=== PATIENT | female | born 1930 | race Caucasian/White ===

== ENCOUNTER → 2016-02-19 | Outpatient (CLI) | payer BC ==
[~2016-02-19] MED LIST: ACET650T49 PO; ADVIN25/60 INH; AMLO-114 PO; ASPCH81X PO; CALC500C70 PO; CHOL20005 PO; CYAN100020 PO; DONE10TA12 PO; ESCI10TA17 PO; GLC500 PO; GLUCTAB7 PO; LISI40TA PO; NMN10 PO; OMEG10007 PO; PRLSR20 PO; PRVC/40 PO
--- NOTE | 2016-02-19 15:48 | MAMMOGRAPHY REPORT ---
BILATERAL DIGITAL SCREENING MAMMOGRAM WITH CAD: 02/19/2016 CLINICAL HISTORY: Routine screening. Patient has no complaints. TECHNIQUE: Bilateral CC and MLO views were obtained. Current study was also evaluated with a Compu ter Aided Detection (CAD) system. COMPARISON: Comparison is made to exams dated: 02/15/2015 mammogram, 02/14/2014 mammogram, 02/12/20 13 mammogram, 02/10/2012 mammogram, 02/06/2011 mammogram, and 02/05/2010 mammogram - [facility]. BREAST COMPOSITION: There are scattered areas of fibroglandular density in both breasts. FINDINGS: There is a newly visualized 6 mm mass in the lower outer quadrant of the left breast, for which additional spot compression tomosynthesis views and targeted ultrasound is recommended. There are mild vascular calcifications and stable benign-appearing microcalcifications bilaterally. No other suspicious mass, architectural distortion or cluster of microcalcifications is seen. IMPRESSION: ACR BI-RADS CATEGORY 0: INCOMPLETE EVALUATION: NEED ADDITIONAL IMAGING EVALUATION The newly visualized 6 cm mass in the left breast needs additional evaluation. The patient will be called to schedule an appointment. Approximately 10% of breast cancers are not detected with mammography. A negative mammographic repor t should not delay biopsy if a clinically suggestive mass is present. Elvia Schulte M.D. ay/:02/19/2016 12:49:10 Hairspring Adjuster: Cookie MENDOZA(Ama)(Broderick)(BD), [facility] letter sent: Addl Imaging 0 BI-RADS Code: ACR BI-RADS Category 0: Incomplete Evaluation: Need Additional Imaging Evaluation
== END | disposition home or self-care (01) ==
LOC: C.MAMM 11:17
PROVIDERS: ATTEND Internal Medicine
DX: Z12.31 Encounter for screening mammogram for malignant neoplasm of breast (principal); N63 Unspecified lump in breast

== ENCOUNTER → 2016-02-23 | Outpatient (CLI) | payer BC ==
--- NOTE | 2016-02-23 15:17 | DIAGNOSTIC IMAGING REPORT ---
TWO VIEW CHEST CLINICAL HISTORY: Acute bronchitis. FINDINGS: PA and lateral chest radiographs are compared to study dated 08/24/2013. The heart is mildly enlarged and there is atherosclerotic calcification of the thoracic aorta. The pulmonary vasculature is noncongested. Chronic interstitial thickening is unchanged. No airspace consolidation or pleural effusion is seen. Mild bibasilar atelectasis is noted. Biapical scarring is observed. There is no pneumothorax. The skeletal structures are osteopenic. The bony thorax appears intact. IMPRESSION: Mild cardiac enlargement with no active disease in the chest. Electronically signed by: Sharath Sullivan M.D. 02/23/2016 3:15 PM Dictated Date/Time: 02/23/2016 3:14 PM
== END | disposition home or self-care (01) ==
LOC: C.RADBC 15:00
PROVIDERS: ATTEND Internal Medicine Geriatric Medicine
DX: J45.909 Unspecified asthma, uncomplicated (principal); J20.9 Acute bronchitis, unspecified

== ENCOUNTER → 2016-02-27 | Outpatient (CLI) | payer BC ==
--- NOTE | 2016-02-27 16:37 | MAMMOGRAPHY REPORT ---
UNILATERAL LEFT DIGITAL DIAGNOSTIC MAMMOGRAM TOMOSYNTHESIS AND TARGETED LEFT ULTRASOUND: 02/27/2016 CLINICAL HISTORY: 85 year-old woman called back from screening mammography for a newly visualized ma ss in the inferior left breast. TECHNIQUE: Spot compression left CC and MLO tomosynthesis images were obtained. COMPARISON: Comparison is made to exams dated: 02/19/2016 mammogram, 02/14/2014 mammogram, 02/15/2015 mammogram, 02/11/2013 mammogram, 02/10/2012 mammogram, and 02/06/2011 mammogram - [facility]. BREAST COMPOSITION: There are scattered areas of fibroglandular density in the left breast. FINDINGS: Best seen on the spot compression left MLO view, there is persistence of an ovoid 7.0 x 2. 8 mm mass in the anterior left breast. This is not clearly identified on the spot compression CC vi ew. Further evaluation with ultrasound was performed. There are mild vascular calcifications withi n the left breast. Real-time high-resolution sonographic evaluation was performed in the inferior left breast. In the 6:00 axis, 2 cm from the nipple, there is a microlobulated mixed echogenicity predominantly isoechoi c mass with internal anechoic spaces, measuring approximately 3.8 x 2.1 x 5.0 mm. This is thought t o correlate with the mammographic mass and is indeterminate. Differential considerations include fo agustín fibrocystic change and a papillary lesion. Definitive characterization with ultrasound guided c ore needle biopsy is recommended. IMPRESSION: ACR BI-RADS CATEGORY 4B: INTERMEDIATE SUSPICION FOR MALIGNANCY, TARGETED ULTRASOUND ACR BI-RADS CATEGORY 4B: INTERMEDIATE SUSPICION FOR MALIGNANCY Left breast ultrasound guided core biopsy is recommended for a mixed echogenicity microlobulated fadumo id appearing 5 mm mass in the 6:00 axis, felt to correlate with a newly visualized mammographic mass in the inferior left breast. These results and recommendations were discussed with the patient and her daughter at the time of th e exam. She tentatively scheduled the left breast biopsy prior to leaving our department. Approximately 10% of breast cancers are not detected with mammography. A negative mammographic repor t should not delay biopsy if a clinically suggestive mass is present. Elvia Schulte M.D. ay/:02/27/2016 14:22:35 Aircraft Power Plant Assembler: Gracie MENDOZA(Ama)(M), [facility] letter sent: Abnormal 05/22 BI-RADS Code: ACR BI-RADS Category 4B: Intermediate Suspicion For Malignancy Ultrasound BI-RADS: AC R BI-RADS Category 4B: Intermediate Suspicion For Malignancy
== END | disposition home or self-care (01) ==
LOC: C.MAMM 13:53
PROVIDERS: ATTEND Internal Medicine
DX: R92.8 Other abnormal and inconclusive findings on diagnostic imaging of breast (principal); N63 Unspecified lump in breast

== ENCOUNTER → 2016-03-07 | Outpatient (CLI) | payer BC ==
--- NOTE | 2016-03-07 14:17 | MAMMOGRAPHY REPORT ---
UNILATERAL LEFT DIGITAL DIAGNOSTIC MAMMOGRAM TOMOSYNTHESIS AND TARGETED LEFT ULTRASOUND: 03/07/2016 CLINICAL HISTORY: Left 6:00 breast mass, for which biopsy was recommended. TECHNIQUE: Breast tomosynthesis in addition to standard 2D mammography was performed. Left CC and MLO 2-D and tomosynthesis images were obtained. COMPARISON: Comparison is made to exams dated: 02/27/2016 ultrasound, 02/27/2016 mammogram, 02/19/2016 mammogram, 02/15/2015 mammogram, 02/14/2014 mammogram, and 02/11/2013 mammogram - [facility]. BREAST COMPOSITION: There are scattered areas of fibroglandular density in the left breast. FINDINGS: The patient presented for ultrasound guided biopsy of the left 6:00 breast mass. Preprocedural ultr asound was performed of the left breast at 6:00, 2 cm from the nipple, at the site of the previously seen mass. However, the previously seen mass was no longer evident. Therefore, repeat mammograms were obtained of the left breast, to see if the mammographic mass was present. The previously seen oval mass within the left inferior breast on the MLO view is not evident on the current exam. Given that the mass is no longer visualized mammographically and sonographically, it likely represented a cyst which has resolved in the interval. Recommend follow-up diagnostic mammograms and possible ul trasound of the left breast in 6 months to reevaluate the area, given that biopsy was not performed. The remainder of the left breast is stable mammographically compared to prior exams, without suspici ous masses, calcifications, or areas of architectural distortion noted. IMPRESSION: ACR-BI-RADS CATEGORY 3: PROBABLY BENIGN, TARGETED ULTRASOUND ACR-BI-RADS CATEGORY 3: [place] OBABLY BENIGN The previously seen left 6:00 breast mass is no longer evident sonographically and mammographically, therefore biopsy was not performed. This likely represented a cyst which has resolved. Recommend follow-up diagnostic mammograms and possible ultrasound of the left breast in 6 months to reevaluate . The patient and her daughter have been verbally notified of the results. Approximately 10% of breast cancers are not detected with mammography. A negative mammographic repor t should not delay biopsy if a clinically suggestive mass is present. Lina Tejeda M.D. ah/:03/07/2016 13:42:58 Laser/Electro Optics Technician: Caridad MENDOZA(R)(M), [facility] letter sent: Follow Up Recommended 3 BI-RADS Code: ACR-BI-RADS Category 3: Probably Benign Ultrasound BI-RADS: ACR-BI-RADS Category 3: P robably Benign
== END | disposition home or self-care (01) ==
LOC: C.MAMM 11:12
PROVIDERS: ATTEND Internal Medicine
DX: R92.8 Other abnormal and inconclusive findings on diagnostic imaging of breast (principal)

== ENCOUNTER → 2016-05-02 | Outpatient (CLI) | payer BC ==
[2016-05-02 13:35] LABS: BASO % 1.8 %; EOS % 3.5 %; HEMATOCRIT 40.7 % (37-47); IG% 0.3 %; LYMPH % 18.8 %; LYMPH ABS # 2.13 K/uL (1.2-3.4); MEAN CELL VOLUME 69.3 fL (80-100); MEAN CORPUSCULAR HEMOGLOBIN 20.8 pg (25-34); MEAN PLATELET VOLUME 10.5 fL (7.4-10.4); MONO % 7.4 %; NEUT % 68.2 %; PLATELET COUNT 567 K/uL (130-400); RED BLOOD COUNT 5.87 M/uL (4.2-5.4)
[2016-05-02 13:58] LABS: ESTIMATED AVERAGE GLUCOSE 123 mg/dl; HA1C FLAG Normal (Normal)
[2016-05-02 14:03] LABS: ALT/SGPT 21 U/L (12-78); AST/SGOT 16 U/L (15-37); BLOOD UREA NITROGEN 18 mg/dl (7-18); BUN/CREATININE RATIO 19.9 (10-20); CALCIUM 9.6 mg/dl (8.5-10.1); CARBON DIOXIDE 29 mmol/L (21-32); CHLORIDE 106 mmol/L (98-107); CREATININE 0.92 mg/dl (0.60-1.20); GLUCOSE 76 mg/dl (70-99); POTASSIUM 4.6 mmol/L (3.5-5.1); SODIUM 142 mmol/L (136-145)
[2016-05-02 14:05] LABS: ALB/GLOB RATIO 1.1 (0.9-2); ALKALINE PHOSPHATASE 49 U/L (45-117); CHOLESTEROL 163 mg/dl (0-200); CHOLESTEROL/HDL RATIO 2.6; HDL CHOLESTEROL 63 mg/dl; LDL CHOLESTEROL CALCULATED 74 mg/dl; TRIGLYCERIDES 128 mg/dl (0-150); VERY LOW DENSITY LIPOPROT CALC 26 mg/dl
[2016-05-02 14:19] LABS: ANISOCYTOSIS PRESENT; COMPLETE YES; MICROCYTOSIS PRESENT; TARGET CELLS 1+
== END | disposition home or self-care (01) ==
LOC: C.LABBC 10:06
PROVIDERS: ATTEND Internal Medicine Geriatric Medicine
DX: E11.9 Type 2 diabetes mellitus without complications (principal); I10 Essential (primary) hypertension; J45.909 Unspecified asthma, uncomplicated

== ENCOUNTER → 2016-06-18 | Outpatient (CLI) | payer BC ==
[2016-06-18 11:22] LABS: HEMATOCRIT 29.8 % (37-47); MEAN CELL VOLUME 70.6 fL (80-100); MEAN CORPUSCULAR HEMOGLOBIN 20.4 pg (25-34); MEAN CORPUSCULAR HGB CONC 28.9 g/dl (32-36); MEAN PLATELET VOLUME 10.3 fL (7.4-10.4); PLATELET COUNT 591 K/uL (130-400); RED BLOOD COUNT 4.22 M/uL (4.2-5.4); WHITE BLOOD COUNT 11.19 K/uL (4.8-10.8)
[2016-06-18 12:48] LABS: BASO % 1.8 %; COMPLETE YES; HYPOCHROMIA PRESENT; IG% 0.3 %; LARGE PLATELETS 2+; LYMPH ABS # 2.13 K/uL (1.2-3.4); MONO % 9.1 %; NEUT % 66.8 %; POIKILOCYTOSIS PRESENT
== END | disposition home or self-care (01) ==
LOC: C.LABBC 08:10
PROVIDERS: ATTEND Internal Medicine
DX: Z00.00 Encounter for general adult medical examination without abnormal findings (principal)

== ENCOUNTER → 2016-06-25 | Day surgery (SDC) | payer BC ==
[2016-06-24 10:17] VITALS: BMI 24.0
[~2016-06-25] VITALS: Ht 172.7 cm; Wt 72.3 kg
[~2016-06-25] MED LIST changes: +LIDOCAINE HCL 2% 2 ML VIAL (20MG/ML) ONE; +ONDANSETRON INJ 2 MG/ML 2 ML VIAL IV PRN; +PROPOFOL IV EMULSION 10 MG/ML 20 ML VIAL IV ONE
[2016-06-25 13:19] VITALS: Ht 172.7 cm; Wt 72.3 kg
--- NOTE | 2016-06-25 13:42 | Endo History and Physical ---
History & Physical Date of Service: June 25, 2016. Chief Complaint: anemia Referring Physician: Dr. Memo Harvey History of Present Illness Patient referred for egd / colonoscopy to evaluate a new onset iron deficiency anemia, no dysphagia, + history of intermitant hematochezia. Past Surgical History Hx Cardiac Surgery: No Hx Internal Defibrillator: No Hx Pacemaker: No Hx Abdominal Surgery: No Hx of Implantable Prosthesis: No Hx Post-Op Nausea and Vomiting: No Hx Cancer Surgery: No Hx Thoracic Surgery: No Hx Orthopedic: Yes (RT/LEFT BUNIONECTOMY) Hx Urinary Tract Surgery: No Family History Esophogeal CA Social History Smoking Status: Never Smoker Hx Substance Use: No Hx Alcohol Use: Yes (VERY RARELY) Allergies Coded Allergies: Adhesives (Verified Allergy, Unknown, 06/25/16) No Known Allergies (Verified , 06/25/16) Current Medications Reported Home Medications Medications Dose Route/Sig Max Daily Dose Days Date Category Vitamin B12 (Cyanocobalamin) 1,000 Mcg Tab 1 Tab PO DAILY 06/24/16 Reported Vitamin D3 (Cholecalciferol) 2,000 Unit Tab 1 Tab PO DAILY 06/24/16 Reported Pravastatin Sodium (Pravastatin Sod) 40 Mg Tab 20 Mg PO DAILY 06/24/16 Reported Prilosec (Omeprazole) 20 Mg Capcr 20 Mg PO DAILY 06/24/16 Reported Metformin HCl 500 Mg Tab 0.5 Tab PO BID 06/24/16 Reported Namenda (Memantine) 10 Mg Tab 10 Mg PO BID 06/24/16 Reported Zestril (Lisinopril) 40 Mg Tab 20 Mg PO DAILY 06/24/16 Reported Glucosamine Chondroitin (Ogcytgaagbt-Lkyhpharlnz-Ihx C-) 1 Tab Tab 1 Tab PO DAILY 06/24/16 Reported [place]-3 (Fish Oil) 1 Ea Cap 1 Cap PO DAILY 06/24/16 Reported Lexapro (Escitalopram Oxalate) 10 Mg Tab 10 Mg PO DAILY 06/24/16 Reported Aricept (Donepezil Hydrochloride) 10 Mg Tab 10 Mg PO QAM 06/24/16 Reported Os-Ricky 500 Plus D (Calcium/Vitamin D) Tab 1 Tab PO DAILY 06/24/16 Reported Aspirin Chewable (Aspirin) 81 Mg Chew 81 Mg PO DAILY 06/24/16 Reported Arthritis Pain Relief (Acetaminophen) 650 Mg Tab 1 Tab PO BID 06/24/16 Reported Norvasc (Amlodipine Besylate) 10 Mg Tab Mg PO DAILY 06/24/16 Reported Advair Diskus 250/50 60 Dose (Fluticasone Prop/Salmeterol) 1 Ea Aerp 1 Puff INH BID 06/24/16 Reported Vital Signs Weight (Kilograms): 72.27 Height (Feet): 5 Height (Inches): 8 Date Time Temp Pulse Resp B/P Pulse Ox O2 Delivery O2 Flow Rate FiO2 06/25/16 13:29 37 80 20 150/64 96 Room Air Physical Exam General Appearance: no apparent distress Respiratory/Chest: Auscultation: breath sounds normal Cardiovascular: Heart Auscultation: RRR Abdomen: Inspection & Palpation: soft Assessment and Plan Evaluation for iron deficiency anemia -- we have discussed the risks to include bleeding, infection, perforation, pain, and missed polyps. plan egd colonoscopy
--- NOTE | 2016-06-25 14:16 | GI REPORT ---
Procedure Date: 06/25/2016 1:39 PM Procedure: Upper GI endoscopy Indications: Iron deficiency anemia Medicines: Monitored Anesthesia Care Complications: No immediate complications. Estimated blood loss: Minimal. Estimated Blood Loss: Estimated blood loss was minimal. Procedure: Pre-Anesthesia Assessment: - Prior to the procedure, a History and Physical was performed, and patient medications, allergies and sensitivities were reviewed. The patient's tolerance of previous anesthesia was reviewed. - The risks and benefits of the procedure and the sedation options and risks were discussed with the patient. All questions were answered and informed consent was obtained. - Patient identification and proposed procedure were verified prior to the procedure by the physician, the nurse and the patrol judge. The procedure was verified in the procedure room. - Pre-procedure physical examination revealed no contraindications to sedation. - ASA Grade Assessment: III - A patient with severe systemic disease. - After reviewing the risks and benefits, the patient was deemed in satisfactory condition to undergo the procedure. - The anesthesia plan was to use monitored anesthesia care (MAC). - Immediately prior to administration of medications, the patient was re-assessed for adequacy to receive sedatives. - The heart rate, respiratory rate, oxygen saturations, blood pressure, adequacy of pulmonary ventilation, and response to care were monitored throughout the procedure. - The physical status of the patient was re-assessed after the procedure. After obtaining informed consent, the endoscope was passed under direct vision. Throughout the procedure, the patient's blood pressure, pulse, and oxygen saturations were monitored continuously. The scope was introduced through the mouth, and advanced to the third part of duodenum. The upper GI endoscopy was accomplished without difficulty. The patient tolerated the procedure well. Findings: The examined esophagus was normal. The Z-line was regular and was found 38 cm from the incisors. Diffuse mild inflammation characterized by congestion (edema), erythema and granularity was found in the entire examined stomach. Biopsies were taken with a cold forceps for histology. Estimated blood loss was minimal. The examined duodenum was normal. Biopsies were taken with a cold forceps for histology. Estimated blood loss was minimal. Impression: - Normal esophagus. - Z-line regular, 38 cm from the incisors. - Gastritis. Biopsied. - Normal examined duodenum. Biopsied. Recommendation: - Perform a colonoscopy today. - Await pathology results. Tiffani Mercer D.O. Tiffani Mercer DO 06/25/2016 2:16:11 PM This report has been signed electronically. Note Initiated On: 06/25/2016 1:39 PM I attest to the content of the Intraoperative Record and orders documented therein, exceptions below
--- NOTE | 2016-06-25 14:27 | GI REPORT ---
Procedure Date: 06/25/2016 1:42 PM Procedure: Colonoscopy Indications: Iron deficiency anemia Medicines: Monitored Anesthesia Care Complications: No immediate complications. Estimated blood loss: Minimal. Estimated Blood Loss: Estimated blood loss was minimal. Procedure: Pre-Anesthesia Assessment: - Prior to the procedure, a History and Physical was performed, and patient medications, allergies and sensitivities were reviewed. The patient's tolerance of previous anesthesia was reviewed. - The risks and benefits of the procedure and the sedation options and risks were discussed with the patient. All questions were answered and informed consent was obtained. - Patient identification and proposed procedure were verified prior to the procedure by the physician, the nurse and the switch house operator. The procedure was verified in the procedure room. - Pre-procedure physical examination revealed no contraindications to sedation. - ASA Grade Assessment: III - A patient with severe systemic disease. - After reviewing the risks and benefits, the patient was deemed in satisfactory condition to undergo the procedure. - The anesthesia plan was to use monitored anesthesia care (MAC). - Immediately prior to administration of medications, the patient was re-assessed for adequacy to receive sedatives. - The heart rate, respiratory rate, oxygen saturations, blood pressure, adequacy of pulmonary ventilation, and response to care were monitored throughout the procedure. - The physical status of the patient was re-assessed after the procedure. After I obtained informed consent, the scope was passed under direct vision. Throughout the procedure, the patient's blood pressure, pulse, and oxygen saturations were monitored continuously. The scope was introduced through the anus and advanced to the terminal ileum. The colonoscopy was performed without difficulty. The patient tolerated the procedure well. The quality of the bowel preparation was good. Findings: The digital rectal exam findings include non-thrombosed external hemorrhoids. Pertinent negatives include normal sphincter tone. The terminal ileum appeared normal. Many small and large-mouthed diverticula were found in the entire colon. Internal hemorrhoids were found during retroflexion. The hemorrhoids were moderate. The exam was otherwise without abnormality. Impression: - Non-thrombosed external hemorrhoids found on digital rectal exam. - The examined portion of the ileum was normal. - Moderate diverticulosis in the entire examined colon. - Internal hemorrhoids. - The examination was otherwise normal. Recommendation: - Discharge patient to home (ambulatory). - Advance diet as tolerated today. - Repeat colonoscopy is not recommended for screening purposes. - CT of abdomen to evaluate the small bowel for evidence of masses. - Return to referring physician as previously scheduled. Tiffani Mercer D.O. Tiffani Mercer, 06/25/2016 2:26:08 PM This report has been signed electronically. Note Initiated On: 06/25/2016 1:42 PM I attest to the content of the Intraoperative Record and orders documented therein, exceptions below
--- NOTE | 2016-06-25 14:28 | Discharge Instructions ---
Endoscopy Patient Instructions Date / Procedure(s) Performed June 25, 2016. Colonoscopy, EGD Allergy Information Coded Allergies: Adhesives (Verified Allergy, Unknown, 06/25/16) No Known Allergies (Verified , 06/25/16) Discharge Date / Findings June 25, 2016. Diffuse gastritis Diverticulosis of the colon Hemorrhoids Medication Instructions Reported Home Medications Medications Dose Route/Sig Max Daily Dose Days Date Category Vitamin B12 (Cyanocobalamin) 1,000 Mcg Tab 1 Tab PO DAILY 06/24/16 Reported Vitamin D3 (Cholecalciferol) 2,000 Unit Tab 1 Tab PO DAILY 06/24/16 Reported Pravastatin Sodium (Pravastatin Sod) 40 Mg Tab 20 Mg PO DAILY 06/24/16 Reported Prilosec (Omeprazole) 20 Mg Capcr 20 Mg PO DAILY 06/24/16 Reported Metformin HCl 500 Mg Tab 0.5 Tab PO BID 06/24/16 Reported Namenda (Memantine) 10 Mg Tab 10 Mg PO BID 06/24/16 Reported Zestril (Lisinopril) 40 Mg Tab 20 Mg PO DAILY 06/24/16 Reported Glucosamine Chondroitin (Qguohfkpxww-Zmqihamrpto-Oqa C-) 1 Tab Tab 1 Tab PO DAILY 06/24/16 Reported [place]-3 (Fish Oil) 1 Ea Cap 1 Cap PO DAILY 06/24/16 Reported Lexapro (Escitalopram Oxalate) 10 Mg Tab 10 Mg PO DAILY 06/24/16 Reported Aricept (Donepezil Hydrochloride) 10 Mg Tab 10 Mg PO QAM 06/24/16 Reported Os-Ricky 500 Plus D (Calcium/Vitamin D) Tab 1 Tab PO DAILY 06/24/16 Reported Aspirin Chewable (Aspirin) 81 Mg Chew 81 Mg PO DAILY 06/24/16 Reported Arthritis Pain Relief (Acetaminophen) 650 Mg Tab 1 Tab PO BID 06/24/16 Reported Norvasc (Amlodipine Besylate) 10 Mg Tab 5 Mg PO DAILY 06/24/16 Reported Advair Diskus 250/50 60 Dose (Fluticasone Prop/Salmeterol) 1 Ea Aerp 1 Puff INH BID 06/24/16 Reported Provider Instructions Activity Restrictions - No exercising or heavy lifting for 24 hours. - Do not drink alcohol the day of the procedure. - Do not drive a car or operate machinery until the day after the procedure. - Do not make any important decisions or sign important papers in 24 hours after the procedure. Following Day: - Return to full activity which may include returning to work/school. Diet Start your diet with liquids and light foods (jello, soup, juice, toast). Then eat your usual diet if not nauseated. Treatment For Common After Affects For mild abdominal pain, bloating, or excessive gas: - Rest - Eat lightly - Lie on right side Follow-Up Information Follow-up with Dr. Memo Harvey as scheduled Consider a CT of the abdomen Daily iron supplement for 3 months Anesthesia Information What You Should Know You have had a procedure that required some medicine to reduce anxiety and discomfort. This treatment is called moderate sedation. After receiving the treatment, you may be sleepy, but you will be able to breathe on your own. The effects of the treatment may last for several hours. Follow these instructions along with Activity/Diet recommendations noted above: * Do NOT do anything where dizziness or clumsiness would be dangerous. * Rest quietly at home today, then you can be up and about tomorrow. * Have a responsible person stay with you the rest of today. * You may have had an I.V. today. If so, you may take the dressing off later today. Recommendations Call your doctor if: * Trouble breathing * Continuous vomiting for more than 24 hours * Temperature above 101 degrees * Severe abdominal pain or bloating * Pain not relieved by pain medicine ordered * There is increased drainage or redness from any incision * A large amount of rectal bleeding greater than 2-3 tablespoons. (If you had a polyp/s removed or have hemorrhoids, a small amount of blood - from the rectum is to be expected.) * You have any unanswered questions or concerns. IN THE EVENT OF A SERIOUS EMERGENCY, GO TO THE NEAREST EMERGENCY ROOM Your discharge instructions were prepared by provider Tiffani Mercer. Patient Instructions Signature Page Josephine Elmore Patient (or Guardian) Signature/Date: I have read and understand the instructions given to me by my caregivers. Caregiver/RN/Doctor Signature/Date: The above-named patient and/or guardian has received patient instructions on this date. + Original Patient Signature Page (only) stays with chart. Please make copy for patient.
[2016-06-25 14:52] VITALS: BP 146/67; PULSE 72; O2SAT 95
--- NOTE | 2016-06-25 14:59 | Anesthesiology Progress Note ---
Anesthesia Post Op Note Date & Time June 25, 2016 at 14:59 Vital Signs Pain Intensity: 0 Vital Signs Past 12 Hours Date Time Temp Pulse Resp B/P Pulse Ox O2 Delivery O2 Flow Rate FiO2 06/25/16 14:36 72 20 127/61 94 Room Air 06/25/16 14:22 72 20 104/55 94 Room Air 06/25/16 13:29 37 80 20 150/64 96 Room Air Notes Mental Status: alert / awake / arousable, participated in evaluation Pt Amnestic to Procedure: Yes Nausea / Vomiting: adequately controlled Pain: adequately controlled Airway Patency, RR, SpO2: stable & adequate BP & HR: stable & adequate Hydration State: stable & adequate Anesthetic Complications: no major complications apparent
== END | disposition home or self-care (01) ==
LOC: C.GI 12:55
PROVIDERS: ATTEND Internal Medicine Gastroenterology
DX: D50.9 Iron deficiency anemia, unspecified (principal); K57.90 Diverticulosis of intestine, part unspecified, without perforation or abscess without bleeding; K64.4 Residual hemorrhoidal skin tags; K29.70 Gastritis, unspecified, without bleeding; Z79.82 Long term (current) use of aspirin; Z80.0 Family history of malignant neoplasm of digestive organs

== ENCOUNTER → 2016-07-01 | Outpatient (CLI) | payer BC ==
[~2016-07-01] MED LIST changes: -LIDOCAINE HCL 2% 2 ML VIAL (20MG/ML) ONE; -ONDANSETRON INJ 2 MG/ML 2 ML VIAL IV PRN; +OPTIRAY 320 IV PRN; -PROPOFOL IV EMULSION 10 MG/ML 20 ML VIAL IV ONE
--- NOTE | 2016-07-01 14:53 | DIAGNOSTIC IMAGING REPORT ---
ABDOMEN AND PELVIS CT WITH IV AND ORAL CONTRAST CT DOSE: 341.15 mGy.cm HISTORY: Pain. Nausea. IR DEFICIENCY, ANEMIA DUE TO CHRONIC BLOOD LOSS TECHNIQUE: Multiaxial CT images of the abdomen and pelvis were performed following the use of intravenous and oral contrast. COMPARISON STUDY: 03/07/2010 FINDINGS: Lung bases are clear. Subtle in homogeneity of enhancement liver. Several small hypodensities are present. Possibility of early cirrhosis being consideration. Spleen is uniform. Pancreas is tortuous in the region of the pancreatic tail which is unchanged. Several parapelvic cysts of the kidneys are identified slightly increased in prominence in the prior exam. No evidence renal hydronephrosis. Bowel pattern is nonobstructive throughout. Mild chronic sigmoid diverticulosis. Bladder is midline. IMPRESSION: 1. Mild sigmoid diverticulosis. 2. No evidence of diverticulitis. 3. Potential early hepatic cirrhosis. 4. Otherwise no acute process of the abdomen or pelvis. Electronically signed by: Ba Brown M.D. 07/01/2016 2:51 PM Dictated Date/Time: 07/01/2016 2:44 PM
== END | disposition home or self-care (01) ==
LOC: C.CTS 13:43
PROVIDERS: ATTEND Internal Medicine Gastroenterology
DX: D50.0 Iron deficiency anemia secondary to blood loss (chronic) (principal)

== ENCOUNTER → 2016-07-03 | Outpatient (CLI) | payer BC ==
[~2016-07-03] MED LIST changes: -OPTIRAY 320 IV PRN
[2016-07-03 19:55] LABS: BLOOD UREA NITROGEN 15 mg/dl (7-18); BUN/CREATININE RATIO 17.8 (10-20); CARBON DIOXIDE 27 mmol/L (21-32); CHLORIDE 106 mmol/L (98-107); CREATININE 0.86 mg/dl (0.60-1.20); GLUCOSE 101 mg/dl (70-99); POTASSIUM 4.2 mmol/L (3.5-5.1); SODIUM 140 mmol/L (136-145)
[2016-07-03 19:58] LABS: FERRITIN 5.6 ng/ml (8.0-388.0)
== END | disposition home or self-care (01) ==
LOC: C.LABPVFM 13:07
PROVIDERS: ATTEND Internal Medicine Gastroenterology
DX: K92.1 Melena (principal); D50.0 Iron deficiency anemia secondary to blood loss (chronic)

== ENCOUNTER → 2016-09-05 | Outpatient (CLI) | payer BC ==
--- NOTE | 2016-09-05 15:42 | MAMMOGRAPHY REPORT ---
UNILATERAL LEFT DIGITAL DIAGNOSTIC MAMMOGRAM TOMOSYNTHESIS WITH CAD AND TARGETED LEFT ULTRASOUND: 08/18 CLINICAL HISTORY: 85 year-old woman presents 6 months after a canceled left breast ultrasound guided core biopsy as the lesion was no longer identified on the day of the biopsy. TECHNIQUE: Left breast 2-D and tomosynthesis CC and MLO views were obtained. Current study was also evaluated with a Computer Aided Detection (CAD) system. COMPARISON: Comparison is made to exams dated: 03/07/2016 ultrasound, 03/07/2016 mammogram, 02/27/2016 ultrasound, 02/27/2016 mammogram, 02/19/2016 mammogram, and 02/15/2015 mammogram - [facility]. BREAST COMPOSITION: There are scattered areas of fibroglandular density in the left breast. FINDINGS: The previously observed 5.9 mm ovoid nodular asymmetry in the inferior anterior left breast on the MLO view is no longer seen. Currently, there is no evidence of a suspicious mass, developing asymmetry, architectural distortion or suspicious calcification. There is mild vascular calcificati on within the left breast. Repeat targeted ultrasound was performed in the 5:00, 6:00 and 7:00 axes of the left breast, to reeva luate the small mixed anechoic and hypoechoic lesion is seen in the 6:00 left breast, 2 cm from the n ipple on the 02/27/2016 ultrasound. Currently, no discrete solid or cystic mass is seen, confirming benignity. IMPRESSION: ACR BI-RADS CATEGORY 2: BENIGN, TARGETED ULTRASOUND ACR BI-RADS CATEGORY 2: BENIGN There is resolution of the mammographic and sonographic mass in the 6:00 left breast, confirming ct gnity. This could have represented a fluctuating cyst. There is no mammographic or targeted sonogra [facility] evidence of malignancy. Return to annual mammogram screening schedule is recommended. The patie nt has been verbally notified of the results. Approximately 10% of breast cancers are not detected with mammography. A negative mammographic report should not delay biopsy if a clinically suggestive mass is present. Elvia Schulte M.D. ay/:09/05/2016 12:29:31 Sleeve Maker: Tigre MENDOZA(Ama)(M), [facility] letter sent: Normal /2 BI-RADS Code: ACR BI-RADS Category 2: Benign Ultrasound BI-RADS: ACR BI-RADS Category 2: Benign
== END | disposition home or self-care (01) ==
LOC: C.MAMM 10:45
PROVIDERS: ATTEND Internal Medicine
DX: N63 Unspecified lump in breast (principal)

== ENCOUNTER → 2016-11-07 | Outpatient (CLI) | payer BC ==
[2016-11-07 13:34] LABS: BASO % 1.7 %; BASO ABS # 0.18 K/uL (0-0.2); COMPLETE YES; EOS % 2.4 %; HEMATOCRIT 58.3 % (37-47); IG% 0.1 %; LYMPH % 15.6 %; LYMPH ABS # 1.65 K/uL (1.2-3.4); MEAN CELL VOLUME 83.5 fL (80-100); MEAN CORPUSCULAR HEMOGLOBIN 27.2 pg (25-34); MEAN CORPUSCULAR HGB CONC 32.6 g/dl (32-36); MEAN PLATELET VOLUME 10.6 fL (7.4-10.4); MONO % 8.4 %; NEUT % 71.8 %; PLATELET COUNT 452 K/uL (130-400); RED BLOOD COUNT 6.98 M/uL (4.2-5.4); WHITE BLOOD COUNT 10.59 K/uL (4.8-10.8)
[2016-11-07 14:05] LABS: FERRITIN 19.3 ng/ml (8.0-388.0); THYROID STIMULATING HORMONE 0.475 uIu/ml (0.300-4.500)
--- NOTE | 2016-11-12 10:29 | CODING QUERY MEDICAL NECESSITY ---
CQSUPPORTING DIAGNOSIS NEEDED A supporting diagnosis is required for the test/procedure performed on this patient in order for us to be reimbursed by the patient's insurance. Please provide a supporting diagnosis for the following test/procedure listed below next to the test name along with your signature. *If there is no additional diagnosis for this patient that would support the following test/procedure please document that below next to the test/procedure. Test(s)/Procedure(s) that require a supporting diagnosis: DOS 11/07/16 VITAMIN B12 TEST Provider Signature: Date: Thank you Christina Gross [facility] Information Management Once completed, please kindly fax back to [phone] For questions please call [phone]
== END | disposition home or self-care (01) ==
LOC: C.LABBC 11:57
PROVIDERS: ATTEND Internal Medicine
DX: D64.9 Anemia, unspecified (principal)

== ENCOUNTER → 2016-11-14 | Outpatient (CLI) | payer BC ==
[2016-11-14 17:29] LABS: BASO % 1.4 %; BASO ABS # 0.17 K/uL (0-0.2); COMPLETE YES; EOS % 2.6 %; HEMATOCRIT 57.8 % (37-47); IG% 0.2 %; LYMPH % 16.2 %; LYMPH ABS # 1.97 K/uL (1.2-3.4); MEAN CELL VOLUME 84.9 fL (80-100); MEAN CORPUSCULAR HGB CONC 31.8 g/dl (32-36); MEAN PLATELET VOLUME 10.5 fL (7.4-10.4); MONO % 7.9 %; NEUT % 71.7 %; PLATELET COUNT 479 K/uL (130-400); RED BLOOD COUNT 6.81 M/uL (4.2-5.4); WHITE BLOOD COUNT 12.14 K/uL (4.8-10.8)
== END | disposition home or self-care (01) ==
LOC: C.LABPVFM 14:07
PROVIDERS: ATTEND Internal Medicine
DX: R79.9 Abnormal finding of blood chemistry, unspecified (principal); D64.9 Anemia, unspecified

== ENCOUNTER → 2017-02-19 | Outpatient (CLI) | payer BC ==
[~2017-02-19] MED LIST changes: -AMLO-114 PO; +AMLO10TA3 PO
--- NOTE | 2017-02-19 15:00 | MAMMOGRAPHY REPORT ---
BILATERAL DIGITAL SCREENING MAMMOGRAM TOMOSYNTHESIS WITH CAD: 02/19/2017 CLINICAL HISTORY: Routine screening. Patient has no complaints. TECHNIQUE: Breast tomosynthesis in addition to standard 2D mammography was performed. Current study was also evaluated with a Computer Aided Detection (CAD) system. COMPARISON: Comparison is made to exams dated: 09/05/2016 ultrasound, 09/05/2016 mammogram, 02/27/2016 mammogram, 02/19/2016 mammogram, 02/15/2015 mammogram, and 02/14/2014 mammogram - [facility]. BREAST COMPOSITION: There are scattered areas of fibroglandular density in both breasts. FINDINGS: No suspicious masses, calcifications, or areas of architectural distortion are noted in ei ther breast. There has been no significant interval change compared to prior exams. Scattered bilater al benign-appearing calcifications are not significantly changed. IMPRESSION: ACR BI-RADS CATEGORY 2: BENIGN There is no mammographic evidence of malignancy. A 1 year screening mammogram is recommended. The pa tient will receive written notification of the results. Approximately 10% of breast cancers are not detected with mammography. A negative mammographic report should not delay biopsy if a clinically suggestive mass is present. Lina Tejeda M.D. /:02/19/2017 12:14:30 [employer] Manager: Gracie MENDOZA(Ama)(M), [facility] letter sent: Normal 1/2 BI-RADS Code: ACR BI-RADS Category 2: Benign
== END | disposition home or self-care (01) ==
LOC: C.MAMM 11:27
PROVIDERS: ATTEND Internal Medicine
DX: Z12.31 Encounter for screening mammogram for malignant neoplasm of breast (principal)

== ENCOUNTER → 2017-04-17 | Outpatient (CLI) | payer BC ==
[~2017-04-17] MED LIST changes: +AMLO-114 PO; -AMLO10TA3 PO
== END | disposition home or self-care (01) ==
LOC: C.PATHSPEC 16:59
PROVIDERS: ATTEND Physician Assistant
DX: L57.0 Actinic keratosis (principal)

== ENCOUNTER → 2017-05-26 | Outpatient (CLI) | payer BC ==
[2017-05-27 06:27] LABS: HEMOGLOBIN A1C 5.7 % (4.5-5.6)
== END | disposition home or self-care (01) ==
LOC: C.LAB 16:16
PROVIDERS: ATTEND Internal Medicine
DX: E11.9 Type 2 diabetes mellitus without complications (principal)